=== PATIENT | female | born 1955 | race Caucasian/White ===

== ENCOUNTER 2017-09-23 11:33 | Day surgery (SDC) | payer OTHER ==
--- NOTE | 2017-09-22 21:15 | PDGENHP ---
History and Physical - Chief Complaint Right Hip Pain - History of Present Illness 1. Right~Gluteus Medius Tendinopathy 2. ~~Bilateral Femoroacetabular Impingement, CAM with labral tear; Not symptomatic HISTORY OF PRESENT ILLNESS: Jeanis a 61 y.o.~very ~active female~who I have had the pleasure to consult on today. I have enjoyed meeting her. She~lives in [place]. 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 ~She~is ; she~has 3~children. ~Jean enjoys skiing, hiking, going on road trips, and travelling. Javiers right~hip pain~started 18 months ago, with no~recalled trauma or injury , and with no~previous complaints. Presentation today is of lateral right~hip pain. ~The hip does not~wake her~at night, she cannot sleep on her Right side. Sitting does not present a problem~ for her. Jeandoes~report suffering from lower back pain episodes: she had a L4-L5 fusion with Dr. Delgado in December. Jeanhas~participated in physical therapy for several months~and has~tried other conservative measures including 2 GT injections in PCP office and Ultra sound guided Glut Med cortisone injections . She~has not~received sufficient symptomatic improvement. Jeanhas~utilized medication for pain management, including NSAID. Jeanhas used medication since the pain began. Jeandenies issues with the left~hip. ~ Jeanunderstands that she~has a hip and pelvis problem which should be researched and wishes to get a better understanding of her~hip status, followed by an establishment of a treatment strategy, hoping she~would be able to get back to her~well being active life. History: Past medical history: ~ Patient: not relevant Relevant familial history: Parents with OA, father had spinal fusion in 30s, TKAs Past surgical history: No. Surgery Anesthesia 1 L4-L5 fusion general 2 Vag hyst general 3 Saphenous vein general Jeandescribes problematic issues with general anesthesia which includes nausea. I have reviewed, verified and agree with the past medical, surgical, family and social history. Current Medications:~has a current medication list which includes the following prescription(s): acetaminophen, aspirin, calcium carbonate-vitamin d3, celecoxib , cyclobenzaprine, glucosam/chond-msm1/c/jose antonio/bor, ibuprofen, krill oil, magnesium, menthol, tramadol, vitamin b complex, and zolpidem. ALLERGIES:~is allergic to fentanyl and sulfa (sulfonamide antibiotics). Objective: Physical Examination: Jeanis 5~feet 8~inches tall and weighs 170~Lbs. Jeanis AAO x3; she~is well -nourished, in NAD. Skin is warm and dry. ~Breathing is non-labored. ~CV with RRR by pulse. Abdomen is soft, NTND. Currently, she~walks with a abnormal antalgic~gait, favoring LEFT Trendelenburg sign is positive~and proprioception is reduced, both~sides. Lower spine examination is negative~for sciatic or femoral nerve irritation with negative~SLR &~femoral stretch tests. Range of motion of the spine is normal~for flexion, extension, and rotations, with no~associated pain. Strength, Sensation and pulses are normal - bilaterally Ankles and knees exams are normal~and no~mal-alignment is evident. She~has left~1~cm short leg length discrepancy. Thigh circumference is symmetric~with no evidence for muscle atrophy~on both~ sides. Hip ROM (degrees): FL ER At 90~hip FL IR At 90~hip FL AB AD EX IR Neutral hip ER Neutral hip R 120 55 15 45 10 10 40 45 L 100 50 0 45 10 10 40 45 Specific hip and pelvis tests: Impingement Test RANJIT Roll Add. Longus R Negative Negative Negative Negative L Negative ++ Negative + Glut. Med ITB R Negative 5/5 strength Negative 5/5 strength L Negative 5/5 strength Negative 5/5 strength Squeeze test measured normal Bony Symphysis pubis is painful~to touch while concentric activity of the rectus abdominis, does not~produce pain at its insertion. Ilio Psos specific tests are negative for pain during cycling for both hips~and remarkable for non painful snap Greater trochanteric burse is painful~on the right hip. Piriformis tests: FAIR is negative, with no~local signs of neuritis related to sciatic nerve. SIJs examination is normal~with normal~RANJIT in relation and local tenderness. Hamstrings tests are negative~functional contraction and positive~tendinopathy the left hip. Imaging: Radiology studies which I have personally reviewed, analyzed and measured are below: XR: AP of the hip and pelvis: Performed in a good~technique Coccyx at level of~pubic symphysis 13~degrees caudal [place] Lines are preserved. Minimal~Pathological signs are seen in the Symphysis Pubis. Minimal~Pathological signs are seen at the Ischial tuberosity. ~ Specific measurements show: NSA~ LCE Sourcil~Angle Sharp's angle Lat. Cam Lat. Pincer C.Over~sign Head~Coverage % ATDmm R N 33 4 36 + - - N N L N 32 10 36 + - - N N Pos. wall sign ISS NAD ~~Dysplasia Comments R Negative Negative 22.8~mm Negative L Negative Negative 16.3~mm Negative Sclerosis Sup. Lat. OA Cysts Joint Space-WBZ Joint Space-Medial R + Negative Negative 5.5~mm 4.5~mm L + Negative Negative 4.4~mm 3.9~mm MRI shows: 80+% Right Glut Medius tear Impression and plan: Jeanis a 61 y.o.~active female~suffering from symptomatic Right~hip pain due to Right~Gluteus Medius Tendinopathy~causing significant disability to her~and altering her~sport and life activities. Physical examination, imaging, and her~story correspond with the diagnosis mentioned above. I have explained the diagnosis and its significance to Jeanand we have discussed the various possible treatment options and their implications with her. These include proceeding with conservative treatment while continuing to modify her~activities to avoid aggravating the Gluteus Medius tendon~further and resuming pain medications or PRP injections (when needed) which can give temporary relief or surgical repair. We discussed in length the various aspects of the surgical repair and rehabilitation after surgery. Jeanwill review the info presented. Jeanwill contact us if she~wishes to pursue further treatment in the future. Jeanis happy with this plan. I have also supplied her~with handouts, outlining the expected surgical treatment and rehab involved. I wish~Jeanall the best, ~~ Pal Dinh, PAC History Information - Allergies/Home Medication List Allergies/Adverse Reactions: fentanyl Allergy (Verified 09/15/17 12:25) Vomiting Sulfa (Sulfonamide Antibiotics) Allergy (Verified 09/15/17 12:24) Hives Home Medications: Aleve BID 09/15/17 [Last Taken Unknown] Ambien 5MG (*) PRN 09/15/17 [Last Taken Unknown] Aspirin 81mg (*) 09/15/17 [Last Taken Unknown] Flexeril 10 MG (*) PRN 09/15/17 [Last Taken Unknown] Herbals/Supplements -Info Only 09/15/17 [Last Taken Unknown] Ibuprofen 09/15/17 [Last Taken Unknown] Tramadol HCl PRN 09/15/17 [Last Taken Unknown] Valium PRN 09/15/17 [Last Taken Unknown] I have personally reviewed and updated: medical history - Social History Smoking Status: Former smoker Review of Systems Review of Systems: Physical Exam Physical Exam:
[2017-09-23] MEDS ORDERED: PREGABALIN 150 MG CAP PO ONE (11:54)
[2017-09-23] MEDS ORDERED: ceFAZolin 2 GM/SWFI 2 GM/20 ML SYR IVP ONE (11:54)
[2017-09-23] MEDS ORDERED: ACETAMINOPHEN 500 MG TAB PO ONE (11:54)
[2017-09-23] MEDS ORDERED: LIDOCAINE 1% 2 ML INJ ID PRN (11:55)
[2017-09-23] MEDS ORDERED: LR 1,000 ML IV ONE (11:55)
[2017-09-23] MEDS ORDERED: BUPIVACAINE 0.25% 30 ML SDV ONE (12:26)
--- NOTE | 2017-09-23 13:15 | PDANEPAE ---
ANE Past Medical History - Cardiovascular History Hx Hypertension: No Hx Arrhythmias: No Hx Chest Pain: No Hx Coronary Artery / Peripheral Vascular Disease: No Hx CHF / Valvular Disease: No Hx Palpitations: No Cardiovascular History Comment: hx of arrythmia took beta monty and worked up by entry driver operator but found nothing over 10 yrs ago - Pulmonary History Hx COPD: No Hx Asthma/Reactive Airway Disease: No Hx Recent Upper Respiratory Infection: No Hx Oxygen in Use at Home: No Hx Sleep Apnea: No Sleep Apnea Screening Result - Last Documented: Negative - Neurologic History Hx Cerebrovascular Accident: No Hx Seizures: No Hx Dementia: No Neurologic History Comment: hx of fusion 12/2016 - Endocrine History Hx Diabetes: No - Renal History Hx Renal Disorders: No - Liver History Hx Hepatic Disorders: No - Neurological & Psychiatric Hx Hx Neurological and Psychiatric Disorders: No - Cancer History Hx Cancer: No - Congenital Disorder History Hx Congenital Disorders: No - GI History Hx Gastrointestinal Disorders: No - Other Health History Other Health History: wears glasses/ contacts. arthritis - Chronic Pain History Chronic Pain: Yes (lower back, right hip and knees) - Surgical History Prior Surgeries: 12/2016 l4-l5 fusion. hysterectomy 1999. left staphenous ligation with clipping of varicose veins 2001 ANE Review of Systems Review of Systems: - Exercise capacity METS (RN): 4 METS ANE Patient History - Allergies Allergies/Adverse Reactions: fentanyl Allergy (Verified 09/15/17 12:25) Vomiting Sulfa (Sulfonamide Antibiotics) Allergy (Verified 09/15/17 12:24) Hives - Home Medications Home Medications: Aleve BID 09/15/17 [Last Taken 09/09/17] Ambien 5MG (*) PRN 09/15/17 [Last Taken 09/22/17] Aspirin 81mg (*) 09/15/17 [Last Taken 09/22/17] Flexeril 10 MG (*) PRN 09/15/17 [Last Taken 09/09/17] Herbals/Supplements -Info Only 09/15/17 [Last Taken 09/22/17] Ibuprofen 09/15/17 [Last Taken 09/16/17] Tramadol HCl PRN 09/15/17 [Last Taken 09/09/17] Valium PRN 09/15/17 [Last Taken 09/09/17] Macrobid 09/23/17 [Last Taken 09/23/17] - NPO status NPO Since - Liquids (Date): 09/23/17 NPO Since - Liquids (Time): 09:45 NPO Since - Solids (Date): 09/22/17 NPO Since - Solids (Time): 22:30 - Smoking Hx Smoking Status: Former smoker - Family Anes Hx Family Hx Anesthesia Complications: none ANE Labs/Vital Signs - Vital Signs Blood Pressure: 129/91 Heart Rate: 71 Respiratory Rate: 14 O2 Sat (%): 96 Height: 172.72 cm Weight: 78.018 kg ANE Physical Exam - Airway Neck exam: FROM Mallampati Score: Class 2 Mouth exam: normal dental/mouth exam - Pulmonary Pulmonary: no respiratory distress - Cardiovascular Cardiovascular: regular rate and rhythym - ASA Status ASA Status: II ANE Anesthesia Plan Anesthesia Plan: general endotracheal anesthesia
[2017-09-23] MEDS ORDERED: PROPOFOL 200 MG/20 ML VIAL ONE (13:33)
[2017-09-23] MEDS ORDERED: MIDAZOLAM 2 MG/2 ML VIAL ONE (13:33)
[2017-09-23] MEDS ORDERED: LIDOCAINE 2% 100 MG/5 ML SYR ONE (13:34)
[2017-09-23] MEDS ORDERED: METOCLOPRAMIDE 10 MG/2 ML VIAL ONE (13:34)
[2017-09-23] MEDS ORDERED: ROCURONIUM 100 MG/10 ML VIAL ONE (13:34)
[2017-09-23] MEDS ORDERED: DEXAMETHASONE 4 MG/ML VIAL ONE ×2 (13:34)
[2017-09-23] MEDS ORDERED: PHENYLEPHRINE HCL 100 MCG/ML SYR ONE (14:04)
[2017-09-23] MEDS ORDERED: ONDANSETRON 4 MG/2 ML VIAL ONE (15:52)
[2017-09-23] MEDS ORDERED: HYDROCODONE/APAP 5/325 TAB PO PRN (16:48)
[2017-09-23] MEDS ORDERED: MEPERIDINE 25 MG/ML SYR IVP PRN (16:48)
[2017-09-23] MEDS ORDERED: ALBUTEROL 3 ML DEYVIAL IH PRN (16:48)
[2017-09-23] MEDS ORDERED: ACETAMINOPHEN 500 MG TAB PO PRN (16:48)
[2017-09-23] MEDS ORDERED: oxyCODONE IR 5 MG TAB PO PRN (16:48)
[2017-09-23] MEDS ORDERED: NALOXONE HCL 0.4 MG/ML INJ IVP PRN (16:48)
[2017-09-23] MEDS ORDERED: ONDANSETRON 4 MG/2 ML VIAL IVP PRN (16:48)
--- NOTE | 2017-09-23 16:48 | POSTANESTH ---
Post Anesthetic Evaluation Cardiovascular Status: Similar to Pre-Op Cond Respiratory Status: Similar to Pre-op Cond. Level of Consciousness/Mental Status: Mildly Sleepy, Arousable Pain Control: Adequate, Prn Tx Ordered Nausea/Vomiting Control: Adequate, Prn Tx Ordered Complications Possibly Related to Anesthesia: None Noted
[2017-09-23] MEDS ORDERED: HYDROmorphONE/DILAUDID 2 MG/ML INJ ONE (17:17)
[2017-09-23] MEDS: HYDROmorphONE/DILAUDID 2 MG/ML INJ IVP PRN ×2 (17:18→17:28)
[2017-09-23] MEDS ORDERED: DIAZEPAM 5 MG/ML 1 ML SYR ONE (18:26)
[2017-09-23] MEDS ORDERED: DIAZEPAM 5 MG/ML 1 ML SYR IVP ONE (18:30)
[2017-09-23] MEDS ORDERED: oxyCODONE IR 5 MG TAB ONE (18:53)
[2017-09-23 19:03] VITALS: BP 118/74
== END 2017-09-23 19:20 | disposition home or self-care (01) ==
LOC: FSGY 11:33
PROVIDERS: ATTEND Orthopaedic Surgery Sports Medicine
PROC: 0L8 Tendons, Division (ICD-10-PCS; principal; 2017-09-23 13:00)
PROC: 0LQL0ZZ Repair Right Upper Leg Tendon, Open Approach (ICD-10-PCS; principal; 2017-09-23 13:00)
DX: M76.01 Gluteal tendinitis, right hip (principal); M25.852 Other specified joint disorders, left hip; M25.851 Other specified joint disorders, right hip
CPT/HCPCS: C1713; J0171; J0690; J1100; J1170; J2001; J2250; J2370; J2405; J2704; J2765; J3360